=== PATIENT | male | born 1940 | race Caucasian/White ===

== ENCOUNTER 2020-06-17 19:57 | Outpatient (REF) | payer MEDICARE, BC, SELFPAY ==
[2020-06-17 14:32] LABS: HCT 23.8 % (40.0-50.0); HGB 7.3 g/dL (13.5-17.5); MCH 30.4 pg (27.0-33.0); MCHC 30.7 % (32.0-36.0); MCV 99.2 fL (80-95); MPV 9.4 fL (8.0-11.0); Platelet Count 279 10^3/uL (130-400); RDW 14.6 % (11.8-14.1); WBC 8.02 10^3/uL (4.4-10.8)
[2020-06-17 14:34] LABS: Anion Gap 10.6 mmol/L (3-11); BUN 64 mg/dL (7-18); CO2 23.4 mmol/L (21.0-32.0); CREATININE 3.3 mg/dL (0.70-1.30); Calcium 8.9 mg/dL (8.5-10.1); Chloride 104 mmol/L (98-107); Estimated GFR 18.27 (mL/min/1.73m2); Glucose 113 mg/dL (74-106); Magnesium 2.2 mg/dL (1.8-2.4); PHOSPHORUS 4.3 mg/dL (2.6-4.7); Potassium 5.6 mmol/L (3.5-5.1); Sodium 138 mmol/L (136-145)
== END 2020-06-17 19:58 | disposition home or self-care (01) ==
LOC: LBN 19:57
PROVIDERS: PCP Internal Medicine; Visit Provider Internal Medicine
DX: N17.9 Acute kidney failure, unspecified (principal); N18.30 Chronic kidney disease, stage 3 unspecified; C20 Malignant neoplasm of rectum; E21.3 Hyperparathyroidism, unspecified
CPT/HCPCS: 80048; 85027; 83735; 84100

== ENCOUNTER 2022-10-23 20:34 | Emergency (ER) | payer MEDICARE, BC, SELFPAY ==
[2022-10-23] VITALS (21 sets, daily range): BP systolic 80–112; BP diastolic 48–67; PULSE 66–98; RESP 13–22; TEMP 36.8; O2SAT 97–100
[2022-10-23] MEDS: Cellulose,Oxidized 2X3 PKT 1 EACH MC (21:11)
[2022-10-23] MEDS: Normal Saline 500 ML IV (21:17)
--- NOTE | 2022-10-23 21:34 | ED.GENADUL_ITS ---
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, Aberrant tissue Primary Care Provider: Rory Gramajo ED Provider: Shlomo Baltazar Home Meds and New Rx's Prescriptions: Continued multivitamin [Daily Multi-Vitamin] 1 EACH tablet 1 tab PO DAILY sennosides [Senna Concentrate] 8.6 MG tablet 2 tab PO BID acetaminophen [Tylenol] 325 MG tablet 650 mg PO PRN PRN simvastatin 40 MG tablet magnesium hydroxide [Milk of Magnesia] 30 ML suspension 30 ml PO PRN PRN pantoprazole 40 MG tablet,delayed release (DR/EC) 40 mg PO DAILY enoxaparin [Lovenox] 120 MG/0.8 ML syringe 120 mg Sub-Q DAILY Patient Comments: pt self administers simethicone [Bicarsim] 80 MG tablet 80 mg PO DAILY atenolol 100 MG tablet 100 mg PO DAILY Qty: 0 0RF Discharge Instructions Instructions: Acute Wounds (ED) Additional Instructions: Keep a pressure bandage on the bleeding tissue on your left buttocks. If it bleeds a little bit that is okay but if it does not stop with a pressure bandage this would be reason to come back to the emergency department for a small surgical intervention. Ultimately this tissue may have to be removed by a surgeon. You have been given a surgery referral please contact them for follow- up. Referrals: Amanda Ardon MD [ [facility] STAFF PHYSICIAN] - Medical Decision Making Bleeding likely from the soft tissue mass of the left buttocks has been controlled. Patient with stable vital signs no symptoms stable for outpatient management. Instructed the nurses to place a compressive bandage on the wound. Instructed the patient to maintain a compressive bandage over the area and to return to the emergency department if the bleeding returns and is not stops just by direct pressure. Also give the patient referral for general surgery as the soft tissue mass may need to be excised. Differential Diagnosis Differential Diagnosis: Lower GI bleed/bleeding soft tissue mass. Medical Records Medical records reviewed: Yes I reviewed the patient's medical records. HPI General Date/Time Provider Initiated Documentation: 10/23/22 20:49 . Limitations to Documentation: no limitations . Information obtained by: patient . HPI Narrative: Patient with a history distant of rectal cancer in remission. Now with colostomy. Patient was having dinner at a restaurant and then noticed spontaneously that his pants were soaked with blood. EMS was contacted and transported the patient to the emergency department. Patient has no pain and had no symptoms of weakness dizziness. Patient states that he has 2 cysts 1 on the coccyx and 1 on the left buttocks that have been there from months if not years. Patient is currently on anticoagulation for history of atrial fibrillation. States that he has no pain in the abdomen. No recent bloody bowel movements and no recent melena. Related Data Home Medications Medication Instructions Recorded Confirmed acetaminophen 325 mg tablet 650 mg PO PRN PRN 02/11/13 02/11/13 (Tylenol) atenolol 100 mg tablet 100 mg PO DAILY #0 tabs 02/11/13 02/11/13 enoxaparin 120 mg/0.8 mL 120 mg subcut DAILY 02/11/13 02/11/13 subcutaneous syringe (Lovenox) magnesium hydroxide 400 mg/5 mL 30 ml PO PRN PRN 02/11/13 02/11/13 oral suspension (Milk of Magnesia) multivitamin (Daily Multi-Vitamin 1 tab PO DAILY 02/11/13 02/11/13 tablet) pantoprazole 40 mg tablet,delayed 40 mg PO DAILY 02/11/13 02/11/13 release sennosides 8.6 mg tablet (Senna 2 tab PO BID 02/11/13 02/11/13 Concentrate) simethicone 80 mg tablet (Bicarsim) 80 mg PO DAILY 02/11/13 02/11/13 simvastatin 40 mg tablet 02/11/13 02/11/13 Previous Rx's Medication Instructions Recorded atenolol 100 mg tablet 100 mg PO DAILY #0 tabs 02/11/13 Allergies Allergy/AdvReac Type Severity Reaction Status Date / Time adhesive tape Allergy Uncoded 10/23/22 20:38 General Stated Complaint: GI Bleed MARGRET: 2 Review of Systems Narrative: CONST: Negative for fever, body aches and chills. HENT: Negative for neck pain/stiffness, headache, congestion, sore throat, swelling. EYES: Negative for discharge/pain or vision changes. RESP: Negative for cough/hemoptysis and shortness of breath. CV: Negative chest pain, difficulty breathing, palpitations. ABD: Negative pain, nausea, vomiting. : Negative increase frequency, dysuria, blood in urine or stool. MUSC: Negative for muscle aches, edema. SKIN: Negative rash, lesions/sores. NEURO: Negative headache, dizziness, weakness. PFSH All Active Problems Dehydration (Acute 02/09/13) Hypercalcemia (Acute 02/09/13) Ovbercontrolled at the time of admission Rectal cancer (Chronic) T3N1. S/P chemotherapy,radiation and surgery. Atrial fibrillation (Chronic) Hypertension (Chronic) Hyperlipidemia (Chronic) Weight loss (Chronic) 30 lb. weight loss related to cancer. Vitamin B12 deficiency (Chronic) Anemia (Chronic) Cyst near coccyx (Acute) Aberrant tissue (Acute) Social History Smoking/Tobacco Use Status: Never Smoking risk assessment performed?: Yes Alcohol Intake: never Drug use: Never Substance use type: does not use Exam Narrative Exam Narrative: GENERAL APPEARANCE NAD, activity normal for age, well developed/ well nourished, no cyanosis, pallor, or diaphoresis. EYES lids/conjunctiva normal. EARS/NOSE/THROAT Mucous membranes moist, nares normal, lips/teeth normal uvula midline without oral pharyngeal erythema, exudate or swelling No lymphangitis/lymphedema. HEAD/NECK normocephalic atraumatic, no facial trauma, neck is supple. RESPIRATORY respiratory effort normal, speaks in full sentences, no tripod position, no accessory muscle use. Lungs clear to auscultation without rhonchi, wheezes, rales CARDIAC Regular rate and rhythm, no edema. ABDOMINAL Soft, ND/NT. No evidence of fluid wave. No pulsatile masses on exam, rebound tenderness, Zuniga sign or pain over Mcburney's point. Colostomy in place with brown stool like material and fluid no blood in bag. Rectal exam: No evidence of bleeding from the rectum. MUSCLES/EXTREMITIES No abnormal range of motion, no swelling. SKIN Warm, soft tissue mass at the coccyx appears as an engorged vein or hematoma. Not actively bleeding. Left-sided gluteal chronic appearing soft tissue mass. There is dried blood around this soft tissue mass and appears as the source of the bleeding. Bleeding has been controlled and there is no active bleeding from the soft tissue mass at this time. Patient has no discrete tenderness from the soft tissue mass NEUROLOGICAL Speech is clear and appropriate. Normal level of consciousness. Gait and coordination are normal. 5/5 strength in all extremities. PSYCH Normal mood and affect. Judgement/competence is appropriate Course Vital Signs Vital signs: Vital Signs Temperature 36.8 C 10/23/22 20:33 Pulse 87 10/23/22 20:33 Respiratory Rate 16 10/23/22 20:33 Blood Pressure 108/66 10/23/22 20:33 Pulse Oximetry 98 10/23/22 20:33 Temperature 36.8 C 10/23/22 20:33 Temperature Source Oral 10/23/22 20:33 Pulse 80 10/23/22 21:15 Pulse 82 10/23/22 21:20 Respiratory Rate 17 10/23/22 21:20 Respiratory Effort Normal 10/23/22 20:33 Blood Pressure 99/67 L 10/23/22 21:15 Blood Pressure Mean 75 10/23/22 21:15 Blood Pressure Position Supine 10/23/22 20:33 Pulse Oximetry 99 10/23/22 21:20 Oxygen Delivery Method Room Air 10/23/22 20:33 Oxygen Flow Rate 0 10/23/22 20:33 Pain Level 0 10/23/22 20:33
== END 2022-10-23 22:35 | disposition home or self-care (01) ==
LOC: ER 21:43
PROVIDERS: Emergency Provider Emergency Medicine; PCP Internal Medicine
DX: D48.5 Neoplasm of uncertain behavior of skin (principal); I48.91 Unspecified atrial fibrillation; Z93.3 Colostomy status; Z79.01 Long term (current) use of anticoagulants; Z85.048 Personal history of other malignant neoplasm of rectum, rectosigmoid junction, and anus